=== PATIENT | female | born 1970 | race Asian ===

== ENCOUNTER 2017-02-15 11:31 | Emergency (ER) | payer OTHER ==
[~2017-02-15] VITALS: Ht 154.9 cm; Wt 56.8 kg
[2017-02-15 11:46] VITALS: BP 170/86
--- NOTE | 2017-02-15 12:41 | RAD ---
Facial bones 3 views 02/15/2017 Clinical indication: Fall, facial pain. Comparison: None. Findings: No evidence of acute displaced nasal bone fracture. The maxillary sinuses are well aerated. Impression: No evidence of acute displaced nasal bone fracture. If there is continued concern for facial fracture, CT is recommended as it is more sensitive
--- NOTE | 2017-02-15 13:01 | PHYS DOC ---
Past History Past Medical History: High Cholesterol Past Surgical History: No Surgical History Alcohol Use: Rarely Drug Use: None Adult General Chief Complaint Chief Complaint: MECHANICAL FALL HPI HPI Patient is a 46 year old F who presents with left-sided facial pain after a fall from standing height this morning on concrete. She denies vision problems. She denies headache at this time. She denies any other neurologic symptoms. She has no other associated symptoms and no exacerbating or alleviating factors. He is not on blood thinners and has no other risk factors for head bleed. Review of Systems Review of Systems Constitutional: Denies fever or chills [] Eyes: Denies change in visual acuity, redness, or eye pain [] HENT: Denies nasal congestion or sore throat [] Respiratory: Denies cough or shortness of breath [] Cardiovascular: No additional information not addressed in HPI [] GI: Denies abdominal pain, nausea, vomiting, bloody stools or diarrhea [] : Denies dysuria or hematuria [] Musculoskeletal: Denies back pain or joint pain [] Integument: Denies rash Neurologic: Denies headache, focal weakness or sensory changes [] Endocrine: Denies polyuria or polydipsia [] All other systems were reviewed and found to be within normal limits, except as documented in this note. Family History Family History Noncontributory Current Medications Current Medications Medications reviewed Allergies Allergies Allergies Coded Allergies Type Severity Reaction Last Updated Verified No Known Drug Allergies 02/15/17 No Physical Exam Physical Exam Constitutional: Well developed, well nourished, no acute distress, non-toxic appearance. [] HENT: Normocephalic, bilateral external ears normal, oropharynx moist, no oral exudates, nose normal. [] Moderate hematoma over the left zygomatic arch Eyes: PERRLA, EOMI, conjunctiva normal, no discharge. [] Neck: Normal range of motion, no tenderness, supple, no stridor. [] Cardiovascular:Heart rate regular rhythm, no murmur [] Lungs & Thorax: Bilateral breath sounds clear to auscultation [] Abdomen: Bowel sounds normal, soft, no tenderness, no masses, no pulsatile masses. [] Skin: Warm, dry, no erythema, no rash. [] Back: No tenderness, no CVA tenderness. [] Extremities: No tenderness, no cyanosis, no clubbing, ROM intact, no edema. [] Neurologic: Alert and oriented X 3, normal motor function, normal sensory function, no focal deficits noted. [] Psychologic: Affect normal, judgement normal, mood normal. [] Current Patient Data Vital Signs Vital Signs Date Time Temp Pulse Resp B/P (MAP) Pulse Ox O2 Delivery O2 Flow Rate FiO2 02/15/17 11:46 97.9 74 20 96 Room Air EKG EKG [] Radiology/Procedures Radiology/Procedures X-ray facial bones - no acute fracture. Radiology report was reviewed without discrepancies CT scan was offered and declined Course & Med Decision Making Course & Med Decision Making Pertinent Labs and Imaging studies reviewed. (See chart for details) [] Dragon Disclaimer Dragon Disclaimer This electronic medical record was generated, in whole or in part, using a voice recognition dictation system. Departure Departure: Impression: Primary Impression: Traumatic hematoma of face Disposition: HOME, SELF-CARE Condition: STABLE Referrals: JOSELIN LEWIS MD (PCP) Patient Instructions: Facial or Scalp Contusion Additional Instructions: Alda was seen in the emergency department after a fall. No emergency medical condition was found on history or physical exam. She had normal imaging of her face. She was advised to return to the emergency room if she develops new or worsening symptoms. She is also advised follow-up with her primary care doctor as needed for further management. Problem Qualifiers Primary Impression: Traumatic hematoma of face Encounter type: initial encounter Qualified Codes: S00.83XA - Contusion of other part of head, initial encounter ANJALI FIELDS MD Feb 15, 2017 13:01
== END 2017-02-15 13:05 | disposition home or self-care (01) ==
LOC: ER 11:31
DX: S00.83XA Contusion of other part of head, initial encounter (principal); E78.00 Pure hypercholesterolemia, unspecified; W18.09XA Striking against other object with subsequent fall, initial encounter; Y93.89 Activity, other specified; Y99.8 Other external cause status; Y92.89 Other specified places as the place of occurrence of the external cause
CPT/HCPCS: 70150; 99284

== ENCOUNTER 2020-10-11 11:22 | Emergency (ER) | payer OTHER ==
[~2020-10-11] VITALS: Ht 154.9 cm; Wt 56.8 kg
--- NOTE | 2020-10-11 11:31 | PHYS DOC ---
Past History Past Medical History: High Cholesterol Past Surgical History: No Surgical History Alcohol Use: Rarely Drug Use: None General Adult HPI: HPI: 50 yo F PMH HLD presents the ED with complaints of " I feel like I'm going to ," reports shortness of breath, fatigue and bilateral upper chest tightness, recently tested positive for Covid, has 2 coworkers who were also tested positive. No history of tobacco use or underlying lung disease. Is descent. Did not receive her Covid vaccine. Review of Systems: Review of Systems: Constitutional: Denies fever or chills Eyes: Denies change in visual acuity HENT: Denies nasal congestion or sore throat or decreased taste or smell Respiratory: Denies hemoptysis or productive cough Cardiovascular: Denies chest pain or edema GI: Denies abdominal pain, nausea, vomiting, : Denies dysuria or vaginal bleeding Musculoskeletal: Denies back pain or joint pain Integument: Denies rash or diaphoresis Neurologic: Denies headache, focal weakness or sensory changes Endocrine: Denies polyuria or polydipsia Lymphatic: Denies swollen glands Psychiatric: Denies depression or anxiety Allergies: Allergies: Allergies Coded Allergies Type Severity Reaction Last Updated Verified No Known Drug Allergies 02/15/17 No Physical Exam: PE: Constitutional: well developed, afebrile, appears worn down HENT: Normocephalic, atraumatic, Eyes: EOMI, conjunctiva normal, no discharge. Neck: Normal range of motion, supple, Cardiovascular: S1/2 present, regular rhythm Lungs & Thorax: Tachypneic, 63% on room air, speaking in full but labored sente nces on nonrebreather Abdomen: soft, no tenderness, Skin: Warm, dry, no erythema, no rash. [] Back: No tenderness, no CVA tenderness. [] Extremities: No tenderness, no cyanosis, no unilateral lower extremity edema Neurologic: Alert and oriented X 3, normal motor function, normal sensory function, no focal deficits noted. [] Psychologic: Affect normal, judgement normal, mood normal. [] EKG: EKG: Sinus rhythm 81 bpm, no axis deviation, normal intervals, T wave inversion lead III, no ST depressions or ST depressions Radiology/Procedures: Radiology/Procedures: IMAGING REPORT Signed PATIENT: TOM SR ACCOUNT: [id number] : 1970 LOCATION: ER AGE: 50 SEX: F EXAM STATUS: REG ER ORD. PHYSICIAN: NETTIE JOHNSON DO REASON: soa PROCEDURE: PORTABLE CHEST 1V Exam Date: 10/11/2020 12:02 PM XR CHEST 1V Indication: Reason: soa / Spl. Instructions: / History: . FINDINGS/ IMPRESSION: There are diffuse bilateral lung infiltrates, greatest in the lung bases. Small pleural effusions are not excluded. No pneumothorax. The cardiac silhouette and pulmonary vasculature are within normal limits. Electronically signed by: Dayna Bui MD (10/11/2020 12:20 PM) [facility] DICTATED AND SIGNED BY: DAYNA BUI MD DATE: 10/11/20 1218 CC: JOSELIN LEWIS MD; NETTIE JOHNSON DO ~MTH0 0 Signed PATIENT: TOM SR ACCOUNT: [id number] : 1970 LOCATION: ER AGE: 50 SEX: F EXAM STATUS: REG ER ORD. PHYSICIAN: NETTIE JOHNSON DO REASON: soa, covid positive, r/o pe PROCEDURE: CT ANGIOGRAPHY CHEST Exam Date: 10/11/2020 2:05 PM CTA CHEST Indication: Reason: soa, covid positive, r/o pe / Spl. Instructions: / History: . TECHNIQUE: CT angiogram of the chest was performed following the administration of nonionic intravenous contrast for evaluation of pulmonary embolus. 3D MIPs were created and reviewed on an independent workstation to assist in diagnosis and clinical management. One or more of the following dose reduction techniques were utilized: *Automated exposure control (AEC) *Adjustment of mA and/or kV according to patient size *Use of iterative reconstruction technique *CT scan done according to ALARA, or ALARA/IMAGE GENTLY FINDINGS: There is adequate opacification of the pulmonary arteries. No central intravascular filling defects are appreciated. There is no evidence for central pulmonary embolus. The aorta is normal in caliber without evidence for dissection. The heart is normal in size without pericardial effusion. The visualized thyroid gland is within normal limits. Mildly enlarged mediastinal lymph nodes are seen. There are diffuse lung infiltrates bilaterally with septal thickening, most prominent in the lung bases, consistent with multifocal pneumonia. The central airways are patent. There is no pleural effusion or pneumothorax. Images of the upper abdomen demonstrate no focal abnormality. Degenerative changes are seen in the spine. IMPRESSION: No evidence for central pulmonary embolus. Multifocal pneumonia with mild mediastinal lymphadenopathy. Follow-up imaging to resolution following treatment is recommended. Electronically signed by: Dayna Bui MD (10/11/2020 2:52 PM) [facility] DICTATED AND SIGNED BY: DAYNA BUI MD DATE: 10/11/20 143 CC: JOSELIN LEWIS MD; NETTIE JOHNSON DO ~MTH0 0 Heart Score: C/O Chest Pain: No Risk Factors: Risk Factors: DM, Current or recent (<one month) smoker, HTN, HLP, family history of CAD, obesity. Risk Scores: Score 0 - 3: 2.5% MACE over next 6 weeks - Discharge Home Score 4 - 6: 20.3% MACE over next 6 weeks - Admit for Clinical Observation Score 7 - 10: 72.7% MACE over next 6 weeks - Early Invasive Strategies Course & Med Decision Making: Course & Med Decision Making Pertinent Labs and Imaging studies reviewed. (See chart for details) Concern for Covid pneumonia with bilateral infiltrates, cannot exclude pleural effusions, started on antibiotics and steroids. Patient persistently tachypneic on nonrebreather, placed on BiPAP. Blood gas shows hypoxia with oxygen of 61. Patient with no leukocytosis or leukopenia. Patient is afebrile. D-dimer elevated, no PE on CT of the chest, which shows multifocal pneumonia. Patient will be transferred to [facility] for higher level of care (pulmonology consultation), accepted by Dr. Mayberry. Patient stable at time of transfer and agrees this plan. I have spoken with the patient and/or caregivers. I have explained the patient's condition, diagnosis and treatment plan based on the information available to me at this time. I have answered the patient's and/or caregivers questions and answered any concerns. The patient and/or caregivers have as good an understanding of the patient's diagnosis, condition and treatment plan as c an be expected at this point. The patient has been stabilized within the capability of the emergency department. The patient will be transported for further care and management or will be moved to an observation or inpatient service. I have communicated with the staff or medical practitioner taking over this patient's care. Critical Care: Authorized and Performed by: Nettie Johnson DO Total critical care time: approximately 35 minutes Due to a high probability of clinically significant, life threatening deterioration, the patient required my highest level of preparedness to intervene emergently and I personally spent this critical care time directly and personally managing the patient. This critical care time included obtaining a history; examining the patient; pulse oximetry; ventilator management if necessary; ordering and review of studies; arranging urgent treatment with devel opment of a management plan; evaluation of patient's response to treatment; frequent reassessment; discussion with patient/family; and, discussions with other providers. This critical care time was performed to assess and manage the high probability of imminent, life-threatening deterioration that could result in multi-organ failure. It was exclusive of separately billable procedures and treating other patients and teaching time. Please see MDM section and the rest of the note for further information on pat ient assessment and treatment. Dragon Disclaimer: Dragriya Disclaimer: This electronic medical record was generated, in whole or in part, using a voice recognition dictation system. Departure Departure: Impression: Primary Impression: Acute respiratory failure with hypoxia Additional Impressions: COVID-19 CAP (community acquired pneumonia) Disposition: 02 [facility]ORT TER[facility] ([facility], Dr. Mayberry) Condition: CRITICAL Referrals: JOSELIN LEWIS MD (PCP) NETTIE JOHNSON DO Oct 11, 2020 11:31
[2020-10-11 12:15] LABS: BGAS PH 7.49 (7.35-7.45)
[2020-10-11] MEDS ORDERED: DEXAMETHASONE SOD PHOS 10 MG/ML VIAL. IVP ONE (12:15)
[2020-10-11] MEDS ORDERED: ONDANSETRON PF 4 MG/2 ML VIAL. IVP ONE (12:15)
[2020-10-11] MEDS ORDERED: IV NORMAL SALINE 1,000ML 1,000 ML IV ONE ×2 (12:15)
[2020-10-11 12:17] LABS: BASO % 1 % (0-3); EOS % 0 % (0-3); HEMATOCRIT 42.1 % (36.0-47.0); HEMOGLOBIN 14.3 g/dL (12.0-15.5); LYMPH # 0.9 x10^3/uL (1.0-4.8); LYMPH % 13 % (24-48); MEAN CORPUSCULAR HEMOGLOBIN 30 pg (25-35); MEAN CORPUSCULAR HGB CONC 34 g/dL (31-37); MEAN CORPUSCULAR VOLUME 88 fL (79-100); MONO # 0.4 x10^3/uL (0.0-1.1); MONO % 5 % (0-9); NEUT # 5.5 x10^3uL (1.8-7.7); NEUT % 81 % (31-73); PLATELET COUNT 239 x10^3/uL (140-400); WHITE BLOOD COUNT 6.8 x10^3/uL (4.0-11.0)
[2020-10-11 12:22] LABS: CALCIUM 9.3 mg/dL (8.5-10.1); CREATININE 0.8 mg/dL (0.6-1.0); GFR 75.9; POTASSIUM 4.1 mmol/L (3.5-5.1)
--- NOTE | 2020-10-11 12:23 | RAD ---
Exam Date: 10/11/2020 12:02 PM XR CHEST 1V Indication: Reason: soa / Spl. Instructions: / History: . FINDINGS/ IMPRESSION: There are diffuse bilateral lung infiltrates, greatest in the lung bases. Small pleural effusions ar e not excluded. No pneumothorax. The cardiac silhouette and pulmonary vasculature are within normal limits. Electronically signed by: Renzo Bui MD (10/11/2020 12:20 PM) [facility]
--- NOTE | 2020-10-11 12:27 | EKG ---
[address] [address] Test Date: 2020-10-11 Test Time: 11:39:12 Pat Name: TOM SR Department: Room: Gender: F Devops Engineer: AILIN : 1970 Requested By: JOSE E JOHNSON Order Number: [id number] Reading MD: Measurements Intervals [place] Rate: 81 P: 0 NV: 176 QRS: 6 QRSD: 82 T: 22 QT: 346 QTc: 402 Interpretive Statements SINUS RHYTHM NORMAL ECG RI6.02 No previous ECG available for comparison
[2020-10-11 12:35] LABS: ALBUMIN 2.8 g/dL (3.4-5.0); ALBUMIN/GLOBULIN RATIO 0.7 (1.0-1.7); TOTAL BILIRUBIN 0.5 mg/dL (0.2-1.0)
[2020-10-11] MEDS ORDERED: cefTRIAXone SODIUM 1 GM VIAL ONE (12:45)
[2020-10-11] MEDS ORDERED: IV NORMAL SALINE 250ML 250 ML ONE (12:45)
[2020-10-11] MEDS ORDERED: AZITHROMYCIN 500 MG in IV NORMAL SALINE 250ML 250 ML IV ONE (12:45)
[2020-10-11] MEDS ORDERED: AZITHROMYCIN 500 MG VIAL. IV ONE (12:45)
[2020-10-11] MEDS ORDERED: IV NORMAL SALINE 50ML 50 ML ONE (12:45)
[2020-10-11 14:00] VITALS: BP 103/65
[2020-10-11] MEDS ORDERED: IOHEXOL 350 MG/ML 100 ML VIAL. IV ONE (14:15)
[2020-10-11] MEDS ORDERED: IOHEXOL 300 MG/ML 75 ML VIAL. IV ONE (14:15)
--- NOTE | 2020-10-11 14:54 | RAD ---
Exam Date: 10/11/2020 2:05 PM CTA CHEST Indication: Reason: soa, covid positive, r/o pe / Spl. Instructions: / History: . TECHNIQUE: CT angiogram of the chest was performed following the administration of nonionic intrave nous contrast for evaluation of pulmonary embolus. 3D MIPs were created and reviewed on an [employer] workstation to assist in diagnosis and clinical management. One or more of the following dose red uction techniques were utilized: *Automated exposure control (AEC) *Adjustment of mA and/or kV according to patient size *Use of iterative reconstruction technique *CT scan done according to ALARA, or ALARA/IMAGE GENTLY FINDINGS: There is adequate opacification of the pulmonary arteries. No central intravascular filling defects are appreciated. There is no evidence for central pulmonary embolus. The aorta is normal in caliber without evidence for dissection. The heart is normal in size without pericardial effusion. The visualized thyroid gland is within normal limits. Mildly enlarged mediastinal lymph nodes are se en. There are diffuse lung infiltrates bilaterally with septal thickening, most prominent in the lung bas es, consistent with multifocal pneumonia. The central airways are patent. There is no pleural effusion or pneumothorax. Images of the upper abdomen demonstrate no focal abnormality. Degenerative changes are seen in the s pine. IMPRESSION: No evidence for central pulmonary embolus. Multifocal pneumonia with mild mediastinal lymphadenopathy. Follow-up imaging to resolution followin g treatment is recommended. Electronically signed by: Renzo Bui MD (10/11/2020 2:52 PM) [facility]
== END 2020-10-11 15:10 | disposition short-term general hospital (02) ==
LOC: ER 11:22
DX: J96.01 Acute respiratory failure with hypoxia (principal); U07.1 COVID-19; J18.9 Pneumonia, unspecified organism; E78.5 Hyperlipidemia, unspecified
CPT/HCPCS: 36415; 36600; 71045; 71275; 80053; 82550; 82803; 83605; 83880; 84484; 85025; 85379; 85610; 85730; 87040; 93005; 94660; 96361; 96365; 96375; 99291; J0456; J0696; J1100; J2060; J2405; J7030; J7050

== ENCOUNTER → 2021-02-20 | Outpatient (CLI) | payer OTHER ==
[~2021-02-20] MED LIST: IOHEXOL 350 MG/ML 100 ML VIAL. IV ONE
--- NOTE | 2021-02-20 15:46 | RAD ---
CTA CHEST History: Chest pain. Rule out PE. Comparison: CTA chest 10/11/20 Technique: CTA of the pulmonary arteries with intravenous contrast. 3-D postprocessing was performed. Findings: Pulmonary arteries: No pulmonary embolism. Aorta and great vessels: No aneurysm or dissection of the aortic arch or thoracic aorta. Thyroid: No significant abnormalities. Mediastinum and todd: No mediastinal masses or adenopathy is seen. Esophagus: The visualized esophagus is normal. Heart: The heart is normal in size. There is no pericardial effusion. Airways, Lungs, Pleura: The airways are patent. There has been interval improvement of diffuse ground glass opacities from prior exam, now with bilateral subpleural reticular markings. No effusion or pne umothorax. Upper abdomen: Diffuse hypodensity liver compatible steatosis Osseous structures and soft tissues: Bilateral breast implants. Osseous structures are unremarkable. Impression: 1. No pulmonary embolism, aortic aneurysm or aortic dissection. 2. Bilateral subpleural reticular markings, suspect sequela of Covid pneumonia. ------ Exposure: One or more of the following individualized dose reduction techniques were utilized for thi s examination: 1. Automated exposure control 2. Adjustment of the mA and/or kV according to patient size 3. Use of iterative reconstruction technique. Electronically signed by: Massimo Bell MD (02/20/2021 3:44 PM) [id number]
== END ==
LOC: CT 15:22
PROVIDERS: ATTEND Internal Medicine Critical Care Medicine
DX: R07.9 Chest pain, unspecified (principal); R06.00 Dyspnea, unspecified
CPT/HCPCS: 71275; Q9967